=== PATIENT | male | born 1935 | race Caucasian/White ===

== ENCOUNTER → 2018-12-26 | Outpatient (REF) | payer MEDICARE ==
[~2018-12-26] MED LIST: ALIGN4 MG PO; CELEBREX200 MG PO; CENTRUM PO; CIPROFLOXACN500 MG PO; COUMADIN10 MG PO; COUMADIN5 MG PO; FISH OIL1200 M1 PO; GLUCOSAMIN OR; HYDROCHLOROT12.5 M1 PO; TAMSULOSIN0.4 MG PO; VITAMIN D-31000 UNIT PO; VOLTAREN1 %; [UNRECOGNIZED DRUG - OTHER] PO; [UNRECOGNIZED DRUG - REMARK]
[2018-12-26 07:18] LABS: HEMOGLOBIN 14.5 g/dl (14.0-18.0); IMMATURE GRANULOCYTES 0.4 % (0.0-5.0); MEAN CORPUSCULAR HGB 32.4 pG CALC (26.0-32.0); MEAN CORPUSCULAR HGB CONC 33.7 g/L CALC (32.0-36.0); NEUT# 2.79 thou/uL (1.82-7.42); RED BLOOD COUNT 4.48 mill/uL (4.70-6.10); RED CELL DISTRI WIDTH 12.7 % (11.5-15.5)
[2018-12-26 08:24] LABS: ALBUMIN 4.1 g/dL (3.2-5.0); ALKALINE PHOSPHATASE 59 u/l (38-126); ANION GAP 16 (6-22 (CALC)); BILIRUBIN, TOTAL 0.6 mg/dL (0.0-1.4); BUN 20 mg/dL (8-23); BUN/CREATININE RATIO 28 (12-20 (CALC)); CALCULATED LDLCHOLESTEROL 86 mg/dL (62-129 (CALC)); CARBON DIOXIDE 29 mmol/l (22-30); CHLORIDE 101 mmol/l (95-108); CHOLESTEROL HDL RATIO 3.7 (<4.4 (CALC)); CREATININE 0.7 mg/dL (0.7-1.3); GFR > 60 ML/MIN (>=60 (CALC)); GFR FOR AFR.AMER. > 60 ML/MIN (>=60 (CALC)); HDL CHOLESTEROL 42 mg/dL (>=40); POTASSIUM 4.5 mmol/l (3.5-5.1); SGOT/AST 19 u/l (19-48); SODIUM 141 mmol/l (137-146); TOTAL CHOLESTEROL 154 mg/dl (0-199); TOTAL PROTEIN 6.9 g/dL (6.3-8.2); TOTAL TRIGLYCERIDES 134 mg/dl (30-149); VLDL CHOLESTROL 27 mg/dl (0-38 (CALC))
== END | disposition home or self-care (01) ==
LOC: LAB 06:38
PROVIDERS: ATTEND Internal Medicine
DX: E78.2 Mixed hyperlipidemia (principal)

== ENCOUNTER 2020-12-17 05:57 | Day surgery (SDC) | payer MEDICARE ==
[~2020-12-17] VITALS: Ht 180.3 cm; Wt 118.8 kg
[~2020-12-17 05:57] MED LIST changes: +ALFUZOSIN HCL E10 MG PO; +ATENOLOL25 MG PO; +B COMPLE2 PO; +CBD OIL PO; +FAMOTIDINE20 M1 PO; +FINASTERIDE5 MG PO; +FLONASE SE27.5 MCG/S; +GABAPENTIN100 MG PO; +MYRBETRIQ25 MG PO; +SIMVASTATIN10 MG PO; +TRAMADOL HCL50 MG PO; +TYLENOL 8 HOUR650 MG PO; +XARELTO10 MG PO
[2020-12-17 11:06] VITALS: BP 114/62
[2020-12-19] MEDS ORDERED: PERCOCET 10/31 COMBO PO (20:19)
[2020-12-19] MEDS ORDERED: XARELTO2.5 MG (20:21)
[2020-12-20] MEDS ORDERED: SENOKOT EXTRA17.2 MG PO (13:50)
[2020-12-20] MEDS ORDERED: TAM75CAP PO (13:51)
== END 2020-12-17 10:50 | disposition home or self-care (01) ==
LOC: ORM 05:57
PROVIDERS: ATTEND Urology
PROC: 0VB08ZZ Excision of Prostate, Via Natural or Artificial Opening Endoscopic (ICD-10-PCS; principal; 2020-12-17)
DX: N40.1 Benign prostatic hyperplasia with lower urinary tract symptoms (principal); N13.8 Other obstructive and reflux uropathy; R35.0 Frequency of micturition; R39.15 Urgency of urination; I10 Essential (primary) hypertension; G62.9 Polyneuropathy, unspecified; K21.9 Gastro-esophageal reflux disease without esophagitis; Z86.718 Personal history of other venous thrombosis and embolism; Z79.01 Long term (current) use of anticoagulants; Z20.822 Contact with and (suspected) exposure to COVID-19
CPT/HCPCS: J0131